=== PATIENT | female | born 1980 | race Caucasian/White ===

== ENCOUNTER 2021-08-11 00:11 | Inpatient (IN) | payer BC ==
[~2021-08-11] VITALS: Ht 162.6 cm; Wt 133.4 kg
[~2021-08-11 00:11] MED LIST: BUPR-315 PO; EMTR1TAB8 PO; GLIM2TAB30 PO; LISI-186 PO; METF-416 PO
[2021-08-11] MEDS ORDERED: ASPIRIN 81MG TABLET PO ONE (00:45)
[2021-08-11 01:15] LABS: BASOPHILS % 0.4 % (0.0-2.0); EOSINOPHILS % 1.5 % (0.0-5.0); HEMATOCRIT. 36.9 % (36.0-48.0); HEMOGLOBIN. 12.5 g/dL (12.0-16.0); LYMPHOCYTES % 26.3 % (20.0-50.0); MEAN CORPUSCULAR HEMOGLOBIN 29.6 pg (28.0-32.0); MEAN CORPUSCULAR VOLUME 87.3 fL (81.0-99.0); MEAN PLATELET VOLUME 8.1 fl (7.4-10.4); MONOCYTES % 4.6 % (2.0-8.0); NEUTROPHILS % 67.2 % (40.0-76.0); PLATELET 306 x1000/uL (130-400); RED BLOOD CELL COUNT 4.23 mill/uL (4.2-5.4); RED CELL DISTRIBUTION WIDTH 13.5 % (11.6-14.6)
[2021-08-11 01:22] LABS: CHLORIDE 103 mEq/L (98-107)
[2021-08-11] MEDS ORDERED: ASPIRIN 81MG TABLET PO NR (05:00)
[2021-08-11] MEDS ORDERED: IOHEXOL-350 100 ML BOTTLE ONE (05:13)
[2021-08-11 06:29] LABS: CLARITY URINE CLEAR (CLEAR); COLOR URINE YELLOW (YELLOW); KETONES URINE NEGATIVE (NEGATIVE); LEUKOCYTE ESTERASE URINE NEGATIVE (NEGATIVE); NITRITE URINE NEGATIVE (NEGATIVE); OCCULT BLOOD URINE NEGATIVE (NEGATIVE); PH URINE 5.5 (4.5-8.0); PROTEIN URINE NEGATIVE (NEGATIVE); SPECIFIC GRAVITY URINE 1.033 (1.005-1.030); UROBILINOGEN URINE 0.2 E.U./dL (0.2-1.0)
[2021-08-11] MEDS ORDERED: ONDANSETRON HCL 4MG/2ML INJ IV PRN (11:00)
[2021-08-11] MEDS ORDERED: ACETAMINOPHEN 325MG TABLET PO PRN (11:00)
[2021-08-11] MEDS: METOPROLOL TARTRATE 25MG TABLET PO SCH ×2 (15:29→21:47)
[2021-08-11 20:30] VITALS: BP 147/75
[2021-08-11] MEDS ORDERED: PROSOL (21:59)
[2021-08-11] MEDS ORDERED: ATOR40TA70 PO (21:59)
[2021-08-11] MEDS ORDERED: BACL-141 PO (21:59)
[2021-08-11] MEDS ORDERED: INSU100I28 SUBCUT (21:59)
[2021-08-12 04:00] VITALS: BP 112/75
[2021-08-12 07:57] LABS: *AMPHETAMINES SCREEN URINE NEGATIVE (NEGATIVE); OPIATES URINE SCREEN NEGATIVE (NEGATIVE)
[2021-08-12 07:58] LABS: *BARBITURATES SCREEN URINE NEGATIVE (NEGATIVE); *BENZODIAZEPINES SCREEN URINE NEGATIVE (NEGATIVE); *COCAINE SCREEN URINE NEGATIVE (NEGATIVE); CANNABINOID URINE SCREEN NEGATIVE (NEGATIVE); METHADONE URINE SCREEN NEGATIVE (NEGATIVE); PHENCYCLIDINE URINE SCREEN NEGATIVE (NEGATIVE)
[2021-08-12 08:00] VITALS: BP 120/78
[2021-08-12] MEDS: METOPROLOL TARTRATE 25MG TABLET PO SCH (08:25)
[2021-08-12] MEDS ORDERED: GLIMEPIRIDE 2MG TABLET PO SCH (08:30)
[2021-08-12] MEDS ORDERED: BUPROPION HCL 150MG TABLET XL 24HR PO SCH (09:00)
[2021-08-12] MEDS ORDERED: LISINOPRIL 5MG TABLET PO SCH (09:00)
[2021-08-12] MEDS ORDERED: ASPIRIN 81MG TABLET PO SCH ×2 (09:00)
[2021-08-12 12:00] VITALS: BP 127/91
[2021-08-12 13:31] VITALS: BP 127/91
[2021-08-12] MEDS ORDERED: METFORMIN HCL 500MG TABLET PO SCH (17:15)
[2021-08-12] MEDS ORDERED: ATORVASTATIN CALCIUM 40MG TABLET PO SCH (21:00)
[2021-08-13 09:07] LABS: % CD 3 POS. LYMPHOCYTES 80.1 % (57.5-86.2); % CD 4 POS. LYMPHOCYTES 58.6 % (30.8-58.5); % CD 8 POS. LYMPH 20.4 % (12.0-35.5); ABSOLUTE CD 3 1922 /uL (622-2402); ABSOLUTE CD 4 HELPER 1406 /uL (359-1519); ABSOLUTE CD 8 SUPPRESSOR 490 /uL (109-897); ABSOLUTE EOSINOPHILS 0.1 x10E3/uL (0.0-0.4); ABSOLUTE LYMPHOCYTES 2.4 x10E3/uL (0.7-3.1); ABSOLUTE MONOCYTES 0.3 x10E3/uL (0.1-0.9); ABSOLUTE NEUTROPHILS 4.8 x10E3/uL (1.4-7.0); BASOPHILS 0 % (Not Estab.); CD4/CD8 RATIO 2.87 (0.92-3.72); HEMATOCRIT 36.6 % (34.0-46.6); HEMOGLOBIN 12.3 g/dL (11.1-15.9); IMMATURE GRANULOCYTES 0 % (Not Estab.); LYMPHOCYTES 32 % (Not Estab.); MEAN CORPUSCULAR HEMOGLOBIN 29.6 pg (26.6-33.0); MEAN CORPUSCULAR HGB CONC. 33.6 g/dL (31.5-35.7); MEAN CORPUSCULAR VOLUME 88 fL (79-97); MONOCYTES 4 % (Not Estab.); NEUTROPHILS 63 % (Not Estab.); PLATELETS 289 x10E3/uL (150-450); RBC 4.16 x10E6/uL (3.77-5.28); RED CELL DISTRIBUTION WIDTH 13.1 % (11.7-15.4); WBC 7.7 x10E3/uL (3.4-10.8)
== END 2021-08-12 16:25 | disposition home or self-care (01) | DRG 206 ==
LOC: ER 00:31 → EDBEDREQ 05:15 → EDBEDREQTM 05:15 → ENRESERV 19:20 → 5WST 21:39
PROVIDERS: ADMIT Internal Medicine; ATTEND Internal Medicine
DX: M94.0 Chondrocostal junction syndrome [Tietze] (principal); Z68.43 Body mass index [BMI] 50.0-59.9, adult; R00.2 Palpitations; F41.0 Panic disorder [episodic paroxysmal anxiety]; E11.9 Type 2 diabetes mellitus without complications; E66.01 Morbid (severe) obesity due to excess calories; R00.0 Tachycardia, unspecified; Z20.822 Contact with and (suspected) exposure to COVID-19; E78.00 Pure hypercholesterolemia, unspecified; I10 Essential (primary) hypertension; Z83.3 Family history of diabetes mellitus; Z90.49 Acquired absence of other specified parts of digestive tract; Z79.899 Other long term (current) drug therapy; Z71.3 Dietary counseling and surveillance
CPT/HCPCS: 36415; 71045; 71275; 80053; 80305; 81003; 82962; 83880; 84443; 84484; 84550; 85025; 85379; 86359; 86360; 87426; 93005; 93306; 99285; Q9967

== ENCOUNTER 2023-09-03 23:40 | Emergency (ER) | payer BC ==
[~2023-09-03 23:40] MED LIST changes: +ALBU5SOL18; +ATOR40TA70 PO; +BACL-141 PO; +INSU100I28 SUBCUT
== END 2023-09-04 02:22 | disposition left against medical advice (07) ==
LOC: ER 23:40
DX: R68.89 Other general symptoms and signs (principal); Z53.21 Procedure and treatment not carried out due to patient leaving prior to being seen by health care provider
CPT/HCPCS: 99281